=== PATIENT | female | born 2000 | race Caucasian/White ===

== ENCOUNTER → 2021-11-08 | Outpatient (CLI) | payer OTHER ==
[~2021-11-08] MED LIST: COLACE100 MG PO; HEMOCYTE324 MG PO; IBUPROFEN600 MG PO; IBUPROFEN800 MG PO; PERCOCET 5/325 T1 EA PO; PRENATAL VITAM1 EAC5 PO
== END ==
LOC: GENOP 23:38
DX: O47.1 False labor at or after 37 completed weeks of gestation (principal); Z91.018 Allergy to other foods; Z3A.38 38 weeks gestation of pregnancy
CPT/HCPCS: 81001; G0463

== ENCOUNTER 2021-11-10 16:19 | Inpatient (IN) | payer OTHER ==
[~2021-11-10] VITALS: Ht 165.1 cm; Wt 110.2 kg
[~2021-11-10 16:19] MED LIST changes: -COLACE100 MG PO; -HEMOCYTE324 MG PO; -IBUPROFEN800 MG PO; -PERCOCET 5/325 T1 EA PO; -PRENATAL VITAM1 EAC5 PO
[2021-11-10 17:07] LABS: HEMOGLOBIN 12.3 gm/dl (12.3-15.3); RED BLOOD COUNT 4.51 M/UL (4.00-5.10); WHITE BLOOD COUNT 13.2 K/UL (4.5-11.0)
[2021-11-10] MEDS ORDERED: PRENATAL VITAM1 EAC5 PO (18:08)
[2021-11-11] MEDS ORDERED: COLACE100 MG PO (09:27)
[2021-11-11] MEDS ORDERED: PERCOCET 5/325 T1 EA PO (09:27)
[2021-11-11] MEDS ORDERED: IBUPROFEN800 MG PO (09:27)
[2021-11-11] MEDS ORDERED: HEMOCYTE324 MG PO (09:27)
[2021-11-12 03:30] LABS: HEMOGLOBIN 10.2 gm/dl (12.3-15.3)
[2021-11-13] MEDS ORDERED: IBUPROFEN800 MG PO (15:20)
[2021-11-13] MEDS ORDERED: PERCOCET 5/325 T1 EA PO (15:20)
== END 2021-11-13 17:45 | disposition home or self-care (01) | DRG 788 ==
LOC: GENOP 16:19 → OB 16:45
PROVIDERS: ADMIT Obstetrics & Gynecology
PROC: 3E033VJ Introduction of Other Hormone into Peripheral Vein, Percutaneous Approach (ICD-10-PCS; 2021-11-10)
PROC: 10907ZC Drainage of Amniotic Fluid, Therapeutic from Products of Conception, Via Natural or Artificial Opening (ICD-10-PCS; 2021-11-11)
PROC: 10D00Z1 Extraction of Products of Conception, Low, Open Approach (ICD-10-PCS; principal; 2021-11-11 08:35)
DX: O99.52 Diseases of the respiratory system complicating childbirth (principal); J45.909 Unspecified asthma, uncomplicated; Z20.822 Contact with and (suspected) exposure to COVID-19; O76 Abnormality in fetal heart rate and rhythm complicating labor and delivery; O99.284 Endocrine, nutritional and metabolic diseases complicating childbirth; E28.2 Polycystic ovarian syndrome; O36.8330 Maternal care for abnormalities of the fetal heart rate or rhythm, third trimester, not applicable or unspecified; R00.1 Bradycardia, unspecified; O69.81X0 Labor and delivery complicated by cord around neck, without compression, not applicable or unspecified; Z37.0 Single live birth; Z3A.38 38 weeks gestation of pregnancy; Z28.310 Unvaccinated for COVID-19; Z82.49 Family history of ischemic heart disease and other diseases of the circulatory system; Z83.3 Family history of diabetes mellitus; Z83.42 Family history of familial hypercholesterolemia
CPT/HCPCS: 36415; 74018; 81001; 82803; 85014; 85018; 85025; J0595; J0690; J1100; J1170; J1885; J2001; J2210; J2270; J2405; J2590; J2704; J2795; J3010; J7120; U0002